=== PATIENT | male | born 1950 | race Caucasian/White ===

== ENCOUNTER 2016-11-28 18:40 | Observation (INO) | payer BC ==
[2016-11-28] MEDS ORDERED: SODIUM CHLORIDE 0.9% 1,000 ML IV STA ×2 (19:20)
[2016-11-28] MEDS ORDERED: ASPIRIN 81 MG PO STA (19:20)
[2016-11-28] MEDS ORDERED: NITROGLYCERIN SL TABS 0.4 MG TAB SUBLINGUAL STA (19:20)
[2016-11-28] MEDS ORDERED: MORPHINE SULFATE 2 MG/ML SYRINGE IVP STA (19:20)
--- NOTE | 2016-11-28 19:24 | ED ---
Chest Pain HPI - General Chief Complaint: Chest Pain Stated Complaint: Chest pain Hx of stent Time Seen by Provider: 11/28/16 19:13 Source: patient, RN notes reviewed, old records reviewed Mode of arrival: wheelchair Limitations: no limitations - History of Present Illness Initial Comments: This is a 66-year-old male presents to the emergency Department chief complaint of 4 days of a dull neck, left shoulder and chest pain. Patient reports that he has a cardiac history and had a stent placed in his proximal LAD [place] [address] Rice. 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 He reports that he told the quilt stuffer is becoming increasingly fatigued with exertion, and is scheduled to have a stress test completed this upcoming Monday. Patient reports that today he started to have some cold sweats and slightly worsening of the chest pain so decided to become evaluated in the emergency department. He reports that 2 days ago he did take an old nitroglycerin that was approximately 15 years old and does not think that there was much improvement. He reports these been doing a lot of work around the house with states that this pain does not seem to be muscular skeletal related. Patient states this pain is currently a 1 out of 10. Patient denies any shortness of breath or cough. Denies any nausea or headache or dizziness. is a nonsmoker. - Related Data Home Medications Medication Instructions Recorded Confirmed Aspirin [Adult Low Dose Aspirin EC] 81 mg PO DAILY 11/28/16 11/28/16 Lisinopril [Zestril] 10 mg PO DAILY 11/28/16 11/28/16 Multivitamin [Multivitamins Adult 1 tab PO DAILY 11/28/16 11/28/16 Gummies] Rosuvastatin [Crestor] 10 mg PO HS 11/28/16 11/28/16 metFORMIN HCL [Glucophage] 500 mg PO DAILY 11/28/16 11/28/16 Allergies Allergy/AdvReac Type Severity Reaction Status Date / Time No Known Allergies Allergy Verified 11/28/16 20:03 Review of Systems ROS Statement: Those systems with pertinent positive or pertinent negative responses have been documented in the HPI. ROS Other: All systems not noted in ROS Statement are negative. EKG Findings - EKG Comments: EKG Findings:: EKG performed at 1854 shows normal sinus rhythm with sinus arrhythmia. Patient seek and he cannot rule out inferior infarct with undetermined age. The degree of 60 bpm. [place] interval 170 ms. QRS duration 96 miliseconds. QT/QTc is 366/389 ms. Past Medical History Past Medical History: Chest Pain / Angina, Hyperlipidemia, Hypertension, Myocardial Infarction ([place]) History of Any Multi-Drug Resistant Organisms: MRSA Date of last positivie culture/infection: 2007 MDRO Source:: back of neck Past Surgical History: Heart Catheterization With Stent Past Psychological History: No Psychological Hx Reported Smoking Status: Never smoker Past Alcohol Use History: None Reported Past Drug Use History: None Reported General Exam - General Exam Comments Initial Comments: This is a very pleasant 66-year-old male. No acute distress. Limitations: no limitations General appearance: alert, in no apparent distress Head exam: Present: atraumatic Eye exam: Present: normal appearance, PERRL, EOMI. Absent: scleral icterus, conjunctival injection, periorbital swelling ENT exam: Present: normal exam, mucous membranes moist Neck exam: Present: normal inspection. Absent: tenderness, meningismus, lymphadenopathy Respiratory exam: Present: normal lung sounds bilaterally, other (No significant chest wall tenderness.). Absent: respiratory distress, wheezes, rales, rhonchi, stridor Cardiovascular Exam: Present: regular rate, normal rhythm, normal heart sounds. Absent: systolic murmur, diastolic murmur, rubs, gallop, clicks GI/Abdominal exam: Present: soft, normal bowel sounds. Absent: distended, tenderness, guarding, rebound, rigid Extremities exam: Present: normal inspection, full ROM, normal capillary refill. Absent: tenderness, pedal edema, joint swelling, calf tenderness Back exam: Present: normal inspection Neurological exam: Present: alert, oriented X3, CN II-XII intact Psychiatric exam: Present: normal affect, normal mood Skin exam: Present: warm, dry, intact, normal color. Absent: rash Course Vital Signs 11/28/16 11/28/16 11/28/16 18:43 19:35 20:55 Temperature 98.4 F Pulse Rate 76 70 63 Respiratory 18 18 18 Rate Blood Pressure 111/64 109/55 105/51 O2 Sat by Pulse 98 98 98 Oximetry Chest Pain MDM - MDM 66-year-old male presents emergency Department chief complaint of 4 days of chest pain. He reports a history of cardiac stents. At this time patient's troponin and cardiac enzymes are negative. Chest x-ray was reviewed and shows no active cardiopulmonary disease. Normal chest. No changes. He relates that he does have a stress test scheduled on Monday. Patient was concerned because of her today he started to have cold sweats and some shortness of breath. Patient was offered admission to observation for further evaluation and cardiac workup. Given his history of stent and continued chest pain patient will be admitted for further evaluation. Patient admitted to [facility]. Discussed this with Dr. orourke. Disposition Clinical Impression: Chest pain Disposition: ADMITTED IP TO THIS HOSP Condition: Stable Referrals: None,Stated [REFERRING] - 1-2 days Time of Disposition: 21:00
[2016-11-28 19:36] LABS: Basophils # (A) 0.1 k/uL (0-0.2); Basophils % (A) 1 %; CH 35.1; CHCM 34.5; Eosinophils # (A) 0.3 k/uL (0-0.7); Eosinophils % (A) 4 %; HCT 41.8 % (39.0-53.0); HDW 2.44; HGB 13.8 gm/dL (13.0-17.5); Luc # (Auto) 0.14; Luc % (Auto) 2; Lymphocytes # (A) 1.7 k/uL (1.0-4.8); Lymphocytes % (A) 22 %; MCH 33.6 pg (25.0-35.0); MCHC 32.9 g/dL (31.0-37.0); MCV 102.2 fL (80.0-100.0); Macrocytosis Slight; Mean Platelet Volume 8.2; Monocytes # (A) 0.6 k/uL (0-1.0); Monocytes % (A) 7 %; Neutrophils % (A) 64 %; RBC 4.09 m/uL (4.30-5.90); RDW 13.4 % (11.5-15.5); WBC 7.8 k/uL (3.8-10.6); WBC (Perox) 8.16
[2016-11-28 19:46] LABS: INR 1.1 (<1.2); Partial Thromboplastin Time 23.4 sec (22.0-30.0); Prothrombin Time 10.7 sec (9.0-12.0)
[2016-11-28 19:52] LABS: ALT 72 U/L (21-72); AST 44 U/L (17-59); Alkaline Phosphatase 41 U/L (38-126); Anion Gap 9 mmol/L; Blood Urea Nitrogen 21 mg/dL (9-20); Calcium 9.7 mg/dL (8.4-10.2); Carbon Dioxide 28 mmol/L (22-30); Chloride 102 mmol/L (98-107); Glucose 118 mg/dL (74-99); Non-African American GFR(MDRD) >60 (>60 ml/min/1.73 sqM); Potassium 4.5 mmol/L (3.5-5.1); Sodium 139 mmol/L (137-145); Total Bilirubin 0.4 mg/dL (0.2-1.3); Total Protein 6.8 g/dL (6.3-8.2)
[2016-11-28 19:59] LABS: Creatine Kinase 133 U/L (55-170)
--- NOTE | 2016-11-28 20:04 | XR ---
EXAMINATION TYPE: XR chest 2V DATE OF EXAM: 11/28/2016 COMPARISON: 04/04/2011 HISTORY: Chest pain TECHNIQUE: Frontal and lateral views of the chest are obtained. FINDINGS: There is no heart failure nor confluent pneumonic infiltrate. Heart size is normal. There are chest leads. Bony thorax is intact. There is no sign of pleural effusion. IMPRESSION: No active cardiopulmonary disease. Normal chest. No change.
[2016-11-28 20:11] LABS: Creatine Kinase MB 1.3 ng/mL (0.0-2.4); Troponin I <0.012 ng/mL (0.000-0.034)
[2016-11-28] MEDS ORDERED: NALOXONE 0.4 MG/ML 1 ML VIAL IV PRN (21:00)
[2016-11-28 21:57] VITALS: BMI 35.8
--- NOTE | 2016-11-28 23:10 | P.HPIM ---
History of Present Illness H&P Date: 11/28/16 Chief Complaint: left sided chest pain 66 year old male with PMHx of CAD s/p stent to LAD 7 years ago, and recet diagnosis of DM. Patient presented with chest pain of atypical features, 4 days duration off/on, described as pressure like involving left shoulder, neck and left side of chest , not related to activity, and does not resolve with rest, mild 1/10 in severity , he thinks that he has been doing work around the house recently and this might have been related to some kind of muskeloskeletal type of pain. It is not associated with any dizziness, light headedness, nausea, vomiting, or tachycardia or SOB. However, today and while working in the garage, he experienced the same type of pressure mentioned above but this time associated with cold sweats, which reminded him of his heart attack years ago, it did not resolve with rest, again pain is pressure like same location as above and 1/10 in severity, however the cold sweats made him get concerned, ended up taking old nitro pill that he has, with no benefit , eventually decided to come to the hospital to get checked. He reports that he saw his marine surveyor a week ago, and reported to him easy fatigability, who recommended to him having a stress test, which is scheduled as OP this monday (in 2 days). In the ED patient continued to report 1/10 pressure like over the left side , not responding to nitro, otherwise no other symptoms, EKG unremarkable for any acute process, cardiac enzymes are negative. Patient denies any orthopnea, PNDs, exertional dyspnea. He reports that pressure is not related to activity, and comes at rest, not resolving by rest either. moving his left upper extremity kind of make him more aware of the pressure. Review of Systems Constitutional: Patient reports no fever, no chills, no night sweating, no significant weight changes Eyes: Patient reports no visual changes, no eye pain ENT: Patient reports no ear pain, no rhinorrhea, no sore throat Respiratory:Patient reports no cough, no wheezing, no shortness of breath Gastrointestinal: Patient reports no diarrhea, no constipation, no nausea no vomiting, no abdominal pain Genitourinary: Patient reports no dysuria, no hematuria, no changes in urinary habits, no genital lesions Musculoskeletal: Patient reports no muscle pain, no joint pain Psychiatric: Patient reports no changes in mood or memory, no suicidal ideation , no anxiety Endocrine: Patient reports no heat intolerance, no cold intolerance, no excessive thirst, no polyuria Neurological: Patient reports no focal neurologic deficits, no weakness, no tingling, slight numbness in bilateral hands off/on Hem/Lymphatic: Patient reports no bleeding tendency, no bruising, no swollen lymph glands Allergic/Immun: Patient reports no recent allergic reactions Skin: Patient reports no rashes, no pruritis, no ulcers Past Medical History Past Medical History: Chest Pain / Angina, Diabetes Mellitus, Hyperlipidemia, Hypertension, Myocardial Infarction ([place]) Last Myocardial Infarction Date:: 2006 History of Any Multi-Drug Resistant Organisms: MRSA Date of last positivie culture/infection: 2007 MDRO Source:: back of neck Past Surgical History: Heart Catheterization With Stent Additional Past Surgical History / Comment(s): Diviated Septum surgery Past Anesthesia/Blood Transfusion Reactions: No Reported Reaction Date of Last Stent Placement:: 2006 Past Psychological History: No Psychological Hx Reported Smoking Status: Never smoker Past Alcohol Use History: None Reported Past Drug Use History: None Reported - Past Family History Mother Family Medical History: COPD Father Family Medical History: Cancer Additional Family Medical History / Comment(s): Brain CA Medications and Allergies Home Medications and Allergies Comment(s): reviewed Home Medications Medication Instructions Recorded Confirmed Type Aspirin [Adult Low Dose Aspirin EC] 81 mg PO DAILY 11/28/16 11/28/16 History Lisinopril [Zestril] 10 mg PO DAILY 11/28/16 11/28/16 History Rosuvastatin [Crestor] 10 mg PO HS 11/28/16 11/28/16 History metFORMIN HCL [Glucophage] 500 mg PO DAILY 11/28/16 11/28/16 History Allergies Allergy/AdvReac Type Severity Reaction Status Date / Time No Known Allergies Allergy Verified 11/28/16 21:50 Physical Exam Vitals: Vital Signs Temp Pulse Resp BP Pulse Ox 11/28/16 22:14 18 11/28/16 21:19 98.3 F 100/54 11/28/16 20:55 63 18 105/51 98 11/28/16 19:35 70 18 109/55 98 11/28/16 18:43 98.4 F 76 18 111/64 98 Intake and Output 11/28/16 11/28/16 11/28/16 06:59 14:59 22:59 Other: Weight 113.3 kg Patient Weight 11/29/16 06:59 Weight 113.3 kg Constitutional: No acute distress, conversant, pleasant Eyes: Anicteric sclerae, moist conjunctiva, no lid-lag Pupils equal round reactive to light ENMT: NC/AT Oropharynx clear, no erythema, exudates Neck: Supple, FROM, no masses, or JVD No carotid bruits No thyromegaly Lungs: Clear to auscultation Clear to percussion Normal respiratory effort, no accessory muscle use Cardiovascular: Heart regular in rate and rhythm, No murmurs, gallops, or rubs No peripheral edema left sided pain is not reproducible by palpation Abdominal: Soft Nontender, no guarding, rebound or rigidity Abdomen moving with respiration Normoactive bowel sounds No hepatomegaly, No splenomegaly No palpable mass No abdominal wall hernia noted Skin: Normal temperature, tone, texture, turgor No induration No subcutaneous nodules No rash, lesions No ulcers Extremities: No digital cyanosis No clubbing Pedal pulses intact and symmetrical Radial pulses intact and symmetrical No calf tenderness Psychiatric: Alert and oriented to person, place and time Appropriate affect fair judgment Neuro Muscles Strength 5/5 in all 4 extremities Sensation to light touch grossly present throughout Cranial nerves II-XII grossly intact No focal sensory deficits Lymphatics: no palpable cervical or supraclavicular , or inguinal lymph nodes Results Results: reviewed CBC & Chem 7: 11/28/16 19:25 11/28/16 19:25 Labs: Abnormal Lab Results - Last 24 Hours (Table) 11/28/16 11/28/16 Range/Units 19:25 19:25 RBC 4.09 L (4.30-5.90) m/uL MCV 102.2 H (80.0-100.0) fL BUN 21 H (9-20) mg/dL Glucose 118 H (74-99) mg/dL Thrombosis Risk Factor Assmnt - Choose All That Apply Each Risk Factor Represents 2 Points: Age 61-74 years Thrombosis Risk Factor Assessment Total Risk Factor Score: 2 Thrombosis Risk Factor Assessment Level: Low Risk Assessment and Plan (1) Atypical chest pain Narrative/Plan: with positive cardiac history , history of CAD s/p stent to LAD years ago cardiac monitoring ASA, statin morphine for pain control low dose BB no acute EKG changes, monitor cardiac enzymes nitro pRN consult cardiology , possible stress test inpatient vs OP Status: Acute (2) Hypertension Narrative/Plan: controlled , continue home meds Status: Chronic (3) Hyperlipidemia Narrative/Plan: continue statin Status: Chronic (4) Diabetes mellitus Narrative/Plan: on oral hypoglycemic agent insulin sliding scale while inpatient Status: Acute Plan: Surrogate decision-maker: patient , Willa Duarte CODE STATUS: Full DVT prophylaxis: heparin sc TID Discussed with: Patient, ER, RN Anticipated discharge: 24-[address]: home
[2016-11-29] MEDS: HEPARIN SODIUM,PORCINE 5,000 UNIT/ML 1 ML VIAL SQ SCH ×3 (00:13→16:28)
[2016-11-29 07:07] LABS: Basophils # (A) 0.1 k/uL (0-0.2); Basophils % (A) 1 %; CH 34.7; CHCM 33.6; Eosinophils # (A) 0.3 k/uL (0-0.7); Eosinophils % (A) 5 %; HCT 37.7 % (39.0-53.0); HDW 2.48; HGB 12.3 gm/dL (13.0-17.5); Luc # (Auto) 0.18; Luc % (Auto) 3; Lymphocytes # (A) 1.8 k/uL (1.0-4.8); Lymphocytes % (A) 27 %; MCHC 32.8 g/dL (31.0-37.0); MCV 103.8 fL (80.0-100.0); Macrocytosis Slight; Monocytes # (A) 0.6 k/uL (0-1.0); Monocytes % (A) 9 %; Neutrophils # (A) 3.6 k/uL (1.3-7.7); Neutrophils % (A) 55 %; RBC 3.63 m/uL (4.30-5.90); RDW 13.4 % (11.5-15.5); WBC 6.5 k/uL (3.8-10.6); WBC (Perox) 6.53
[2016-11-29 07:28] LABS: Anion Gap 6 mmol/L; Blood Urea Nitrogen 16 mg/dL (9-20); Calcium 8.6 mg/dL (8.4-10.2); Carbon Dioxide 26 mmol/L (22-30); Chloride 107 mmol/L (98-107); Glucose 83 mg/dL (74-99); Non-African American GFR(MDRD) >60 (>60 ml/min/1.73 sqM); Potassium 4.4 mmol/L (3.5-5.1); Sodium 139 mmol/L (137-145)
[2016-11-29] MEDS: INSULIN LISPRO (humaLOG) 300 UNIT/3 ML VIAL SQ SCH ×3 (08:23→18:06)
[2016-11-29] MEDS ORDERED: LISINOPRIL 10 MG TAB PO SCH (09:00)
[2016-11-29] MEDS ORDERED: ASPIRIN 81 MG PO SCH (09:00)
[2016-11-29] MEDS ORDERED: ASPIRIN 325 MG TAB PO STA (10:01)
[2016-11-29] MEDS ORDERED: ALPRAZolam 0.25 MG TAB PO PRN (10:01)
[2016-11-29] MEDS ORDERED: SODIUM CHLORIDE 0.9% 1,000 ML in EMPTY BAG 1 BAG IV ONE (10:01)
[2016-11-29] MEDS ORDERED: ALPRAZolam 0.5 MG TAB PO PRN (10:01)
[2016-11-29] MEDS ORDERED: ATORVASTATIN 80 MG TAB PO STA (10:01)
[2016-11-29] MEDS ORDERED: NITROGLYCERIN SL TABS 0.4 MG TAB SUBLINGUAL PRN (10:01)
[2016-11-29] MEDS ORDERED: LIDOCAINE 2% INJ 20 MG/ML (20 ML MDV) ONE (11:00)
[2016-11-29] MEDS ORDERED: MIDAZOLAM 2 MG/2 ML VIAL ONE (11:00)
--- NOTE | 2016-11-29 11:06 | ECHOF ---
Referral Reason:chest pain MEASUREMENTS -------- HEIGHT: 177.8 cm WEIGHT: 108.9 kg BP: 104/55 RVIDd: 3.4 cm (< 3.3) IVSd: 1.1 cm (0.6 - 1.1) LVIDd: 5.3 cm (3.9 - 5.3) LVPWd: 1.2 cm (0.6 - 1.1) IVSs: 1.6 cm LVIDs: 3.7 cm LVPWs: 1.6 cm LA Diam: 3.4 cm (2.7 - 3.8) LAESV Index (A-L): 26.13 ml/m Ao Diam: 3.6 cm (2.0 - 3.7) AV Cusp: 2.6 cm (1.5 - 2.6) MV EXCURSION: 25.336 mm (> 18.000) MV EF SLOPE: 118 mm/s (70 - 150) EPSS: 0.5 cm MV E Eric: 0.86 m/s MV DecT: 223 ms MV A Eric: 0.65 m/s MV E/A Ratio: 1.31 FINDINGS -------- Sinus rhythm with extra systolic beats. This was a technically good study. The left ventricular size is normal. Left ventricular wall thickness is normal. Overall left ventricular systolic function is normal with, an EF between 55 - 60 %. The right ventricle is mildly enlarged. Normal LA size by volume 22+/-6 ml/m2. The right atrial size is normal. Aortic valve is trileaflet and is mildly thickened. Mild mitral annular calcification present. No regurgitation noted There is no pulmonic regurgitation present. The aortic root size is normal. The inferior vena cava is mildly dilated. There is no pericardial effusion. CONCLUSIONS -------- 1. Sinus rhythm with extra systolic beats. 2. Mild mitral annular calcification present. 3. No regurgitation noted 4. There is no pulmonic regurgitation present. 5. The aortic root size is normal. 6. The inferior vena cava is mildly dilated. 7. There is no pericardial effusion. 8. This was a technically good study. 9. The left ventricular size is normal. 10. Left ventricular wall thickness is normal. 11. Overall left ventricular systolic function is normal with, an EF between 55 - 60 %. 12. The right ventricle is mildly enlarged. 13. Normal LA size by volume 22+/-6 ml/m2. 14. The right atrial size is normal. 15. Aortic valve is trileaflet and is mildly thickened. AVID EDITOR: Jailyn Bermudez RDCS
[2016-11-29] MEDS ORDERED: fentaNYL (PF) 50 MCG/ML 2 ML AMP ONE (11:08)
[2016-11-29] MEDS ORDERED: MIDAZOLAM 2 MG/2 ML VIAL IV ONE (11:15)
[2016-11-29] MEDS ORDERED: fentaNYL (PF) 50 MCG/ML 2 ML AMP IV ONE (11:15)
[2016-11-29] MEDS ORDERED: LIDOCAINE 2% INJ 20 MG/ML SQ ONE (11:16)
[2016-11-29] MEDS ORDERED: IOHEXOL 350 MG/ML 125ML BOTTLE INJ ONE (11:28)
[2016-11-29] MEDS ORDERED: SODIUM CHLORIDE 0.9% 1,000 ML IV ONE (11:31)
[2016-11-29] MEDS ORDERED: RX INFO: IV CONTRAST WAS GIVEN 1 EACH MISC MISCELLANE PRN (11:35)
[2016-11-29] MEDS ORDERED: SODIUM CHLORIDE 0.9% 1,000 ML IV SCH (11:45)
--- NOTE | 2016-11-29 12:01 | CC ---
CARDIAC CATHETERIZATION REPORT REFERRING PHYSICIAN: Dr. Phillips. INDICATION: Unstable angina in a patient with known CAD status post prior angioplasty of proximal LAD. PROCEDURE NOTE: After obtaining informed consent, left heart catheterization and coronary angiogram are performed via the right femoral artery using standard Steven catheters. The patient tolerated the procedure well without any obvious immediate complications. Femoral angiogram was performed. An Angio-Seal was deployed for hemostasis. Patient received moderate conscious sedation. Total sedation time was 15 minutes. FINDINGS: RIGHT CORONARY ARTERY: Right coronary artery is a large dominant vessel that shows some mild atherosclerotic plaque in its proximal portion without any focal hemodynamically significant lesion. LEFT MAIN CORONARY ARTERY: Left main coronary artery is a normal-sized vessel and is free of stenosis. Divides into left anterior descending coronary artery and circumflex coronary artery. LEFT ANTERIOR DESCENDING CORONARY ARTERY: LAD was previously stented in the proximal part and the stent appears patent and just past the stent there is a 30-40% stenosis which was noted on the previous angiogram also. CIRCUMFLEX CORONARY ARTERY: Circumflex coronary artery gives off a fair caliber OM branch. There is a 40% stenosis in the proximal part of the OM branch. CONCLUSIONS: Patent stent within the LAD with a mild 30-40% stenosis and in the left anterior descending artery just distal to the stent and 30-40% stenosis involving the OM branch. PLAN: I reviewed angiographic data with the patient and told him that his chest discomfort is probably noncardiac in origin and his management is going to be in the form of coronary risk factor modification and continued medical therapy. MMODL / IJN: [id number] /
[2016-11-29 12:21] LABS: Glucose,Whole Blood 93 mg/dL (75-99)
--- NOTE | 2016-11-29 14:25 | P.CRDCN ---
History of Present Illness Consult date: 11/29/16 History of present illness: This is a 66-year-old male follows with Dr. Clancy as an outpatient. Past medical history significant for coronary artery disease, dyslipidemia, carotid atherosclerosis, hypertension and diabetes mellitus. He presents to the hospital with complaints of chest discomfort spanning over the previous 4 days. He states the discomfort is intermittent in nature and actually appears to go away with exertion. The pain is on the left side of the chest radiates up into the left neck and shoulder partially down into the arm. He states he was managing the pain at first but then yesterday he became extremely diaphoretic with minimal exertion. This presentation was typical to his heart attack in 2006. He denies associated shortness of breath, dizziness, nausea, vomiting or palpitations. He saw Dr. Clancy recently the end of October was recommended he undergo Cardiolite stress test. This is scheduled for tomorrow in the office. His last catheterization was performed in 2006. It revealed critical LAD stenosis which required stenting. EKG reveals sinus mechanism with nonspecific ST changes in the inferior leads. Most recent echocardiogram performed October 2015 reveals preserved left ventricular function with an ejection fraction of 60% with mild concentric hypertrophy with suggestive diastolic dysfunction. Review of Systems CONSTITUTIONAL: Denies fever. Denies chills. EYES: Denies blurred vision. Denies vision changes. Denies eye pain. EARS, NOSE, MOUTH & THROAT: Denies headache. Denies sore throat. Denies ear pain. CARDIOVASCULAR: Complains of intermittent chest pain. Denies shortness of breath. Denies orthopnea. Denies PND. Denies palpitations. RESPIRATORY: Denies cough. GASTROINTESTINAL: Denies abdominal pain. Denies diarrhea. Denies constipation. Denies nausea. Denies vomitng. MUSCULOSKELETAL: Denies myalgias. INTEGUMENTARY: Denies pruitis. Denies rash. NEUROLOGIC: Denies numbness. Denies tingling. Denies weakness. PSYCHIATRIC: Denies anxiety. Denies depression. ENDOCRINE: Denies fatigue. Denies weight change. Denies polydipsia. Denies polyurina. GENITOURINARY: Denies burning, hematuria or urgency with micturation. HEMATOLOGIC: Denies history of anemia. Denies bleeding. Past Medical History Past Medical History: Chest Pain / Angina, Hyperlipidemia, Hypertension, Myocardial Infarction ([place]) Last Myocardial Infarction Date:: 2006 History of Any Multi-Drug Resistant Organisms: MRSA Date of last positivie culture/infection: 2007 MDRO Source:: back of neck Past Surgical History: Heart Catheterization With Stent Additional Past Surgical History / Comment(s): Diviated Septum surgery Past Anesthesia/Blood Transfusion Reactions: No Reported Reaction Date of Last Stent Placement:: 2006 Past Psychological History: No Psychological Hx Reported Smoking Status: Never smoker Past Alcohol Use History: None Reported Past Drug Use History: None Reported - Past Family History Mother Family Medical History: COPD Father Family Medical History: Cancer Additional Family Medical History / Comment(s): Brain CA Medications and Allergies Home Medications Medication Instructions Recorded Confirmed Type Aspirin [Adult Low Dose Aspirin EC] 81 mg PO DAILY 11/28/16 11/28/16 History Lisinopril [Zestril] 10 mg PO DAILY 11/28/16 11/28/16 History Rosuvastatin [Crestor] 10 mg PO HS 11/28/16 11/28/16 History metFORMIN HCL [Glucophage] 500 mg PO DAILY 11/28/16 11/28/16 History Allergies Allergy/AdvReac Type Severity Reaction Status Date / Time No Known Allergies Allergy Verified 11/28/16 21:50 Physical Exam Vitals: Vital Signs Temp Pulse Pulse Resp BP BP Pulse Ox 11/29/16 08:00 97.6 F 64 18 104/55 97 11/29/16 04:00 97.9 F 62 18 107/51 98 11/29/16 00:00 18 11/28/16 22:49 98.1 F 60 18 103/56 98 11/28/16 22:14 18 11/28/16 21:19 98.3 F 100/54 11/28/16 20:55 63 18 105/51 98 11/28/16 19:35 70 18 109/55 98 11/28/16 18:43 98.4 F 76 18 111/64 98 Intake and Output 11/28/16 11/29/16 11/29/16 22:59 06:59 14:59 Other: # Voids 1 Weight 109 kg GENERAL: This is a 66-year-old male in no apparent distress at the time of my examination. Obese. HEENT: Head is atraumatic, normocephalic. Pupils are equal, round. Sclerae anicteric. Conjunctivae are clear. Mucous membranes of the mouth are moist. Neck is supple. There is no jugular venous distention. No carotid bruit is heard. LUNGS: Clear to auscultation no wheezes, rales or rhonchi. No chest wall tenderness is noted on palpation or with deep breathing. HEART: Regular rate and rhythm without murmurs, rubs or gallops. S1 and S2 heard. ABDOMEN: Soft, nontender. Bowel sounds are heard. No organomegaly noted. EXTREMITIES: 2+ peripheral pulses with no evidence of peripheral edema and no calf tenderness noted. NEUROLOGIC: Patient is awake, alert and oriented x3. Results 11/29/16 06:29 11/29/16 06:27 Cardiac Enzymes 11/28/16 11/28/16 Range/Units 19:25 19:25 AST 44 (17-59) U/L CK-MB (CK-2) 1.3 (0.0-2.4) ng/mL Troponin I <0.012 (0.000-0.034) ng/mL Coagulation 11/28/16 Range/Units 19:25 PT 10.7 (9.0-12.0) sec APTT 23.4 (22.0-30.0) sec CBC 11/28/16 11/29/16 Range/Units 19:25 06:29 WBC 7.8 6.5 (3.8-10.6) k/uL RBC 4.09 L 3.63 L (4.30-5.90) m/uL Hgb 13.8 12.3 L (13.0-17.5) gm/dL Hct 41.8 37.7 L (39.0-53.0) % Plt Count 212 175 (150-450) k/uL Comprehensive Metabolic Panel 11/28/16 11/29/16 Range/Units 19:25 06:27 Sodium 139 139 (137-145) mmol/L Potassium 4.5 4.4 (3.5-5.1) mmol/L Chloride 102 107 (98-107) mmol/L Carbon Dioxide 28 26 (22-30) mmol/L BUN 21 H 16 (9-20) mg/dL Creatinine 1.14 1.02 (0.66-1.25) mg/dL Glucose 118 H 83 (74-99) mg/dL Calcium 9.7 8.6 (8.4-10.2) mg/dL AST 44 (17-59) U/L ALT 72 (21-72) U/L Alkaline Phosphatase 41 (38-126) U/L Total Protein 6.8 (6.3-8.2) g/dL Albumin 4.1 (3.5-5.0) g/dL Current Medications Generic Name Dose Route Start Last Admin Trade Name Freq PRN Reason Stop Dose Admin Aspirin 81 mg 11/29/16 09:00 Aspirin PO DAILY [facility] Atorvastatin Calcium 20 mg 11/29/16 21:00 Lipitor PO HS [facility] Heparin Sodium (Porcine) 5,000 unit 11/29/16 00:00 11/29/16 00:13 Heparin SQ Not Given Q8HR [facility] Insulin Human Lispro 0 unit 11/29/16 07:30 11/29/16 08:23 Humalog SQ Not Given ACHS [facility] Protocol Lisinopril 10 mg 11/29/16 09:00 Zestril PO DAILY [facility] Naloxone HCl 0.2 mg 11/28/16 21:00 Narcan IV Q2M PRN Opioid Reversal Intake and Output 11/28/16 11/29/16 11/29/16 22:59 06:59 14:59 Other: # Voids 1 Weight 109 kg 11/29/16 06:29 11/29/16 06:27 Assessment and Plan Plan: ASSESSMENT 1. Unstable angina 2. Coronary artery disease with stent placement 3. Hypertension 4. Hyperlipidemia PLAN Proceed with cardiac catheterization. I have discussed the risks, benefits and alternative therapies for the above-mentioned procedure and for both sedation/ analgesia as well as necessary blood product administration, if indicated, as they pertain to this patient. The patient has indicated understanding and acceptance of the risks and procedures discussed. All appropriate questions have been answered. The patient is agreeable to move forward with above-stated procedure. Further recommendations based upon clinical course. The above impression and plan of care have been discussed and directed by the signing physician. Rebeka Melgoza, nurse practitioner, acting as scribe for signing physician.
--- NOTE | 2016-11-29 14:51 | P.DS ---
Providers Date of admission: 11/28/16 21:03 Expected date of discharge: 11/29/16 Attending physician: Anamika Phillips MD Consults: 11/29/16 00:41 Consult Physician Routine Consulting Provider: Karlo Rice Consult Reason/Comments: atypical chest pain Do you want consulting provider notified?: Yes Primary care physician: Manish Mcfarland - Discharge Diagnosis(es) (1) CAD (coronary artery disease) Current Visit: Yes Status: Acute (2) Atypical chest pain Current Visit: Yes Status: Acute (3) Diabetes mellitus Current Visit: Yes Status: Acute (4) Hyperlipidemia Current Visit: Yes Status: Chronic (5) Hypertension Current Visit: Yes Status: Chronic Hospital Course: The patient is a 66-year-old male that presented with atypical chest pain with a history of coronary artery disease with stenting approximately 7 years ago with ongoing coronaries factors that presented with atypical chest pain, his initial EKG and cardiac enzymes were negative for any acute ischemia subsequent trending up his enzymes was also negative. Cardiology was consulted given the patient's history of presenting symptoms of being very similar to his prior stenting. The patient was taken to the helper animal laboratory which showed a patent stent within the LAD with a mild 30-40% stenosis, and in in the left LAD just distal to the stent 30-40% stenosis involving the OM branch. Echocardiogram showed normal ejection fraction of 55-60%. Cardiology determined that the patient's chest pain was noncardiac in origin the patient was subsequently discharged home in stable condition and instructed to follow up with his PCP and insulation board back tender Dr. Rice in 1 week. This discharge process took less than 30 minutes Procedures: Left heart catheterization Patient Condition at Discharge: Stable Plan - Discharge Summary New Discharge Prescriptions: No Action metFORMIN HCL [Glucophage] 500 mg PO DAILY Rosuvastatin [Crestor] 10 mg PO HS Lisinopril [Zestril] 10 mg PO DAILY Aspirin [Adult Low Dose Aspirin EC] 81 mg PO DAILY Discharge Medication List Aspirin [Adult Low Dose Aspirin EC] 81 mg PO DAILY 11/28/16 [History] Lisinopril [Zestril] 10 mg PO DAILY 11/28/16 [History] Rosuvastatin [Crestor] 10 mg PO HS 11/28/16 [History] metFORMIN HCL [Glucophage] 500 mg PO DAILY 11/28/16 [History] Follow up Appointment(s)/Referral(s): Karlo Rice MD [STAFF PHYSICIAN] - 1 Week None,Stated [REFERRING] - 1-2 days Discharge Disposition: HOME SELF-CARE
[2016-11-29 16:40] VITALS: BP 116/56; PULSE 57; RESP 17; TEMP 97.7
[2016-11-29] MEDS ORDERED: ATORVASTATIN 20 MG TAB PO SCH (21:00)
== END 2016-11-29 18:12 | disposition home or self-care (01) ==
LOC: EC 18:40 → 3OBS 21:03
PROVIDERS: ADMIT Internal Medicine; ATTEND Internal Medicine
DX: I25.10 Atherosclerotic heart disease of native coronary artery without angina pectoris (principal); R07.89 Other chest pain; E11.9 Type 2 diabetes mellitus without complications; E78.5 Hyperlipidemia, unspecified; I10 Essential (primary) hypertension; I65.29 Occlusion and stenosis of unspecified carotid artery; I25.2 Old myocardial infarction; Z95.5 Presence of coronary angioplasty implant and graft; R06.02 Shortness of breath; M25.512 Pain in left shoulder; M54.2 Cervicalgia; R61 Generalized hyperhidrosis; Z79.82 Long term (current) use of aspirin; Z79.899 Other long term (current) drug therapy; Z79.84 Long term (current) use of oral hypoglycemic drugs; Z86.14 Personal history of Methicillin resistant Staphylococcus aureus infection; Z80.8 Family history of malignant neoplasm of other organs or systems; Z82.5 Family history of asthma and other chronic lower respiratory diseases
CPT/HCPCS: 99285; 99156; 96360 ×2; 96361 ×4; 36415; 93005; 93306; 93458; 83880; 80053; 80048; 82550; 82553; 83735; 84484 ×2; 85025 ×2; 85610; 85730; 71020; G0378 ×2; C1760; C1894; C1769; J2001; J2250; J3010; Q9967

== ENCOUNTER → 2017-12-06 | Outpatient (CLI) | payer BC ==
[2017-12-06 17:20] LABS: HCT 41.4 % (39.0-53.0); HGB 13.7 gm/dL (13.0-17.5); MCH 33.8 pg (25.0-35.0); MCHC 33.2 g/dL (31.0-37.0); Macrocytosis Slight; Mean Platelet Volume 7.8; Platelet Count 221 k/uL (150-450); RBC 4.06 m/uL (4.30-5.90); RDW 12.6 % (11.5-15.5); WBC 7.1 k/uL (3.8-10.6)
[2017-12-06 17:44] LABS: Calcium 10.3 mg/dL (8.4-10.2); Potassium 4.8 mmol/L (3.5-5.1)
== END | disposition home or self-care (01) ==
LOC: LABWHC1 16:33
PROVIDERS: ATTEND Nurse Practitioner Adult Health
DX: I10 Essential (primary) hypertension (principal); E78.5 Hyperlipidemia, unspecified; R00.2 Palpitations
CPT/HCPCS: 36415; 80048; 83721; 84443; 85027

== ENCOUNTER → 2023-03-14 | Outpatient (CLI) | payer BC ==
[2023-03-14 16:56] LABS: Basophils # (A) 0.09 X 10*3/uL (0.00-0.10); Basophils % (A) 1.1 %; Eosinophils # (A) 0.52 X 10*3/uL (0.04-0.35); Eosinophils % (A) 6.6 %; HCT 45.4 % (39.6-50.0); Lymphocytes % (A) 17.8 %; MCH 33.6 pg (27.0-32.0); MCV 101.8 FL (80.0-97.0); Mean Platelet Volume 11.5 FL (9.5-12.2); Monocytes # (A) 0.98 X 10*3/uL (0.20-1.00); Monocytes % (A) 12.5 %; NRBC Per 100 WBC 0 X 10*3/uL (0.00-0.01); Neutrophils # (A) 4.83 X 10*3/uL (1.80-7.70); Neutrophils % (A) 61.5 %; Platelet Count 181 X 10*3/uL (140-440); RBC 4.46 X 10*6/uL (4.40-5.60); RDW 12.9 % (11.5-14.5); WBC 7.86 X 10*3/uL (4.50-10.00)
[2023-03-14 17:23] LABS: ALT 53 U/L (10-49); AST 41 U/L (14-35); Albumin 4.3 g/dL (3.8-4.9); Albumin/Globulin Ratio 1.79 Ratio (1.60-3.17); Alkaline Phosphatase 41 U/L (41-126); BUN/Creat Ratio 9.08 Ratio (12.00-20.00); Blood Urea Nitrogen 11.8 mg/dL (9.0-27.0); Calcium 9.6 mg/dL (8.7-10.3); Carbon Dioxide 26.4 mmol/L (21.6-31.8); Chloride 102 mmol/L (96-109); Chol/HDL Ratio 3.04 Ratio; Globulin 2.4 g/dL (1.6-3.3); Glucose 128 mg/dL (70-110); LDL Cholesterol,Calculated 47.2 mg/dL (0.0-131.0); Magnesium 2.1 mg/dL (1.5-2.4); Potassium 4.9 mmol/L (3.5-5.5); Sodium 139 mmol/L (135-145); Total Bilirubin 0.9 mg/dL (0.3-1.2); Total Protein 6.7 g/dL (6.2-8.2)
== END | disposition home or self-care (01) ==
LOC: LABWHC1 11:16
PROVIDERS: ATTEND Internal Medicine Interventional Cardiology
DX: I25.10 Atherosclerotic heart disease of native coronary artery without angina pectoris (principal); I49.3 Ventricular premature depolarization; E78.5 Hyperlipidemia, unspecified
CPT/HCPCS: 36415; 80053; 80061; 83036; 83735; 84443; 85025

== ENCOUNTER 2023-10-12 05:44 | Inpatient (IN) | payer MEDICARE, BC ==
[2023-10-12] MEDS ORDERED: SODIUM CHLORIDE 0.9% 1,000 ML BAG ONE (08:00)
[2023-10-12] MEDS ORDERED: ISOPROTERENOL 250 MCG/1.25 ML SYR IV ONE (08:20)
[2023-10-12] MEDS ORDERED: fentaNYL (PF) 50 MCG/ML 2 ML AMP ONE (08:20)
[2023-10-12] MEDS ORDERED: HEPARIN SODIUM,PORCINE 5,000 UNIT/ML 1 ML VIAL ONE (08:20)
[2023-10-12] MEDS ORDERED: LIDOCAINE 1% INJ 10MG/ML (20 ML MDV) ONE ×2 (08:40)
[2023-10-12] MEDS ORDERED: ROPIVACAINE 5MG/ML 20ML VIAL ONE ×2 (09:28)
[2023-10-12] MEDS ORDERED: ISOPROTERENOL IV ONE ×2 (11:00)
[2023-10-12] MEDS: IOPAMIDOL-370 100ML BTL INJ ONE (11:24)
[2023-10-12] MEDS ORDERED: CLOPIDOGREL 75 MG TAB ONE ×2 (11:48)
--- NOTE | 2023-10-13 15:58 | CE ---
CARDIAC ELECTROPHYSIOLOGY REPORT PROCEDURE: Diagnostic EP study and ablation of clinical PVC in association with cardiomyopathy. High PVC burden of 22% and nonsustained VT, known coronary artery disease, status post coronary stenting to the LAD. DETAILS OF THE PROCEDURE: The patient was brought to the EP lab in a fasting state. Written informed consent was obtained prior to the procedure. Light conscious sedation was provided. Venous sheaths were placed in the left femoral vein and via these diagnostic catheters were positioned in the high right atrium and the right ventricle and intracardiac echo catheter was placed. There was no pericardial effusion at baseline. 3D anatomic mapping of the aortic root and the LVOT was performed. The clinical PVCs appear to be originating from the LV outflow tract area, the aortic root, aortic cusps, the left main coronary artery, and LVOT and base of the left ventricle and the mitral valve area were mapped with intracardiac echo and with activation mapping. In the earliest site, a PVC activation was identified at the commissure between the right coronary cusp and the left coronary cusp slightly into the right coronary cusp. The earliest activation site had an excellent very sharp downward deflection of the unipolar signal and earliest electrogram was -31 milliseconds from the onset of the QRS. PentaRay catheter was used to map the earliest site. Following that an ablation catheter was placed and the earliest site with an excellent unipolar electrogram and early bipolar electrogram of -31 milliseconds resulted in successful ablation with a single lesion. We started at a 10-watt power and increased to 20 soto for about 20 seconds. Several additional shorter lesions were applied in that vicinity, but one single ablation actually resulted in complete ablation of the PVCs. Intracardiac echo revealed no effusion around the aortic root. Following that high-dose Isuprel was administered and there was no nonsustained VT, no PVCs noted. During Isuprel washout, no PVCs were noted. Straight pacing was performed from the high right atrium. AV node Wenckebach block was performed. AV node Wenckebach block was 250 milliseconds on Isuprel. Sinus node recovery time was normal. OH interval 193 milliseconds, QRS 116 milliseconds, and QT 419 milliseconds. Vascade closure device used for the venous sheaths and for the arterial sheath Perclose was used. Please note that the femoral artery was accessed from the right side under fluoroscopic guidance. Femoral artery arteriogram was performed to confirm that the access site was above the origin of the profunda femoris. Hemodynamic monitoring was performed through the procedure and during mapping and subsequently Perclose closure was used to close the arterial puncture site. The patient tolerated the procedure well without any acute complications. RESULTS: Successful mapping and ablation of the frequent clinical PVC to the commissure between the right coronary cusp and the left coronary cusp and the aortic root. Successful ablation performed, successful ablation of the PVCs. MMODL / IJN: [id number] /
== END 2023-10-12 19:08 | disposition home or self-care (01) | DRG 274 ==
LOC: CATHEP 05:44 → 6NMEDSUR 11:25
PROVIDERS: ADMIT Internal Medicine Clinical Cardiac Electrophysiology; ATTEND Internal Medicine Clinical Cardiac Electrophysiology
DX: I47.20 Ventricular tachycardia, unspecified (principal); I25.5 Ischemic cardiomyopathy; I25.10 Atherosclerotic heart disease of native coronary artery without angina pectoris; I49.3 Ventricular premature depolarization
CPT/HCPCS: 86850; 86900; 86901; 93623; 93654; 93662